=== PATIENT | male | born 1955 | race Caucasian/White ===

== ENCOUNTER 2020-07-23 10:36 | Emergency (ER) | payer OTHER ==
[2020-07-23] MEDS ORDERED: Sodium Chloride 0.9% 10 ML Syringe FLUSH PRN (11:31)
--- NOTE | 2020-07-23 12:11 | EDM.PDOC ---
ED HPI GENERAL MEDICAL PROBLEM - General Chief Complaint: Diabetic Complaint Stated Complaint: HIGH BP, HIGH BLOOD SUGAR Time Seen by Provider: 07/23/20 11:15 Source of Information: Reports: Patient History Limitations: Reports: No Limitations - History of Present Illness INITIAL COMMENTS - FREE TEXT/NARRATIVE: 65-year-old male presents to the emergency department with complaints of high blood sugar. Patient states he was seen at the [place] this morning and he had received all of his glucometer and test strips and they were going to compare his readings to the [place]'s readings. Upon initial check at the [place] the blood sugar read greater than 400 so they sent him to the emergency department for further evaluation. Patient denies any recent fever, chills, nausea, vomiting or di arrhea. Patient states he has had increased thirst and urination starting about 3 days ago. However, he states that yesterday he felt amazing and he even went for a walk which is unheard of for him. He states that years ago he took glipizide however he has not been taking this as his diabetes "resolved ". - Related Data Allergies Allergy/AdvReac Type Severity Reaction Status Date / Time Pyzpldb-Ckt-Ymu Reductase Allergy Vomiting Verified 07/23/20 10:46 Inhibitor Home Meds: Home Meds Budesonide [Budesonide EC] 1 tab PO TID 07/23/20 [History] Chlorthalidone 0.5 tab PO DAILY 07/23/20 [History] Loperamide [Imodium] 1 tab PO BID PRN 07/23/20 [History] Losartan [Cozaar] 1 tab PO DAILY 07/23/20 [History] Omeprazole 1 tab PO DAILY 07/23/20 [History] cloNIDine HCL [Clonidine HCl] 1 tab PO DAILY 07/23/20 [History] glipiZIDE [Glipizide ER] 1 tab PO BID 07/23/20 [History] hydrALAZINE HCl [Hydralazine HCl] 1 tab PO BID 07/23/20 [History] Past Medical History HEENT History: Reports: Hard of Hearing Other HEENT History: sensorineural hearing loss, biltaeral Cardiovascular History: Reports: High Cholesterol, Hypertension Gastrointestinal History: Reports: GERD Other Gastrointestinal History: colon inflammation Genitourinary History: Reports: BPH Other Genitourinary History: 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 Endocrine/Metabolic History: Reports: Diabetes, Type II, Vitamin D Deficiency - Infectious Disease History Infectious Disease History: Reports: Chicken Pox, Influenza, Measles - Past Surgical History Other HEENT Surgeries/Procedures: 3 surgeries to remove infection from face around 7 years ago GI Surgical History: Reports: Colonoscopy Social & Family History - Tobacco Use Tobacco Use Status *Q: Never Tobacco User Second Hand Smoke Exposure: No - Caffeine Use Caffeine Use: Reports: Coffee, Soda - Recreational Drug Use Recreational Drug Use: No ED ROS GENERAL - Review of Systems Review Of Systems: See Below Constitutional: Reports: No Symptoms. Denies: Fever, Chills, Decreased Appetite HEENT: Reports: No Symptoms Respiratory: Reports: No Symptoms Cardiovascular: Reports: No Symptoms Endocrine: Reports: High Glucose, Polydypsia, Polyuria GI/Abdominal: Reports: No Symptoms : Reports: Frequency. Denies: Pain, Urgency Musculoskeletal: Reports: No Symptoms Skin: Reports: No Symptoms Neurological: Reports: No Symptoms Psychiatric: Reports: No Symptoms Hematologic/Lymphatic: Reports: No Symptoms Immunologic: Reports: No Symptoms ED EXAM GENERAL NO PERIP PULSE - Physical Exam Exam: See Below Exam Limited By: No Limitations General Appearance: Alert, WD/WN, No Apparent Distress Eye Exam: Bilateral Eye: PERRL Ears: Hearing Grossly Normal Nose: Normal Inspection, Normal Mucosa Throat/Mouth: Normal Inspection, Normal Voice, No Airway Compromise Head: Atraumatic, Normocephalic Neck: Normal Inspection, Supple, Non-Tender, Full Range of Motion Respiratory/Chest: No Respiratory Distress, Lungs Clear, Normal Breath Sounds, No Accessory Muscle Use Cardiovascular: Normal Peripheral Pulses, Regular Rate, Rhythm, No Edema, No Murmur, Friction Rub GI/Abdominal: Soft, Non-Tender, No Distention (Male) Exam: Deferred Rectal (Males) Exam: Deferred Back Exam: Normal Inspection, Full Range of Motion Extremities: Normal Inspection, Normal Range of Motion, Non-Tender, No Pedal Edema, Normal Capillary Refill Neurological: Alert, Oriented, Normal Cognition Psychiatric: Normal Affect, Normal Mood Skin Exam: Warm, Dry, Intact, Normal Color, No Rash Lymphatic: No Adenopathy #1 Interpretation EKG Date: 07/23/20 Time: 10:49 Rhythm: NSR Rate (Beats/Min): 89 [place]: Normal P-Wave: Present QRS: Normal ST-T: Normal QT: Normal Comparison: NA - No Prior EKG EKG Interpretation Comments: Dr. Goodwin interpretation: Sinus rhythm with 2 PVCs, Q waves in lead III, abnormal EKG Course - Vital Signs Text/Narrative:: 65-year-old male sent from the [place] clinic due to elevated blood sugar reading. States he was seen there this morning for a checkup and to begin using a glucometer at home. When they checked his blood sugar at the [place] it was greater than 400 so they sent him here to be seen. Of note patient states that he has a history of diabetes, but he states this has resolved and he has not taken diabetic medications for the past 4 to 5 years. He states he has been feeling well other than issues with hypertension for which he sees cardiology. They have made several changes to his blood pressure medications. He states over the past few days he has had only dysuria and polyuria. He says however that yesterday he felt the best he has felt in a very long time and even went for a walk. Denies any recent fever, chills, nausea, vomiting or diarrhea. Denies any burning when voiding. I have ordered labs on this patient. Last Recorded V/S: Last Vital Signs Temp 97.3 F 07/23/20 10:41 Pulse 96 07/23/20 10:41 Resp 16 07/23/20 10:41 BP 178/106 H 07/23/20 10:41 Pulse Ox - Orders/Labs/Meds Orders: Active Orders 24 hr Category Date Time Status Accu Check [Blood Glucose Check, Bedside] [] ONETIME Care 07/23/20 15:30 Active Blood Glucose Check, Bedside [] ONETIME Care 07/23/20 13:30 Active Blood Glucose Check, Bedside [RC] ONETIME Care 07/23/20 14:30 Active Blood Glucose Check, Bedside [] Q1HR Care 07/23/20 16:30 Active Insulin Regular, Human [HumuLIN R] 100 unit Med 07/23/20 13:00 Active Sodium Chloride 0.9% [Normal Saline] 99 ml IV TITRATE Sodium Chloride 0.9% [Saline Flush] Med 07/23/20 11:31 Active 10 ml FLUSH ASDIRECTED PRN Saline Lock Insert [OM.PC] Stat Oth 07/23/20 11:31 Ordered Medication Orders Insulin Human Regular 100 unit (/ Sodium Chloride) 100 mls @ 5 mls/hr IV TITRATE YOUNG; Protocol Last Titration: 07/23/20 15:33 Dose: 5.6 unit/hr, 5.6 mls/hr Documented by: KOMAL Cosigned by: MATT Titration: 07/23/20 14:40 Dose: 3.75 unit/hr, 3.75 mls/hr Documented by: KOMAL Cosigned by: COREY Admin: 07/23/20 13:17 Dose: 5 unit/hr, 5 mls/hr Documented by: KOMAL Cosigned by: JADA Sodium Chloride (Saline Flush) 10 ml FLUSH ASDIRECTED PRN PRN Reason: Keep Vein Open Last Admin: 07/23/20 11:40 Dose: 10 ml Documented by: KOMAL Labs: Laboratory Tests 07/23/20 07/23/20 07/23/20 Range/Units 10:45 10:45 10:45 WBC 6.72 (4.23-9.07) K/mm3 RBC 5.78 (4.63-6.08) M/mm3 Hgb 16.1 (13.7-17.5) gm/dl Hct 45.2 (40.1-51.0) % MCV 78.2 L (79.0-92.2) fl MCH 27.9 (25.7-32.2) pg MCHC 35.6 H (32.2-35.5) g/dl RDW Std Deviation 37.5 (35.1-43.9) fL Plt Count 212 (163-337) K/mm3 MPV 10.8 (9.4-12.3) fl Neut % (Auto) 70.8 H (34.0-67.9) % Lymph % (Auto) 19.2 L (21.8-53.1) % [place] % (Auto) 7.6 (5.3-12.2) % Eos % (Auto) 1.2 (0.8-7.0) Baso % (Auto) 0.3 (0.1-1.2) % Neut # (Auto) 4.76 (1.78-5.38) K/mm3 Lymph # (Auto) 1.29 L (1.32-3.57) K/mm3 [place] # (Auto) 0.51 (0.30-0.82) K/mm3 Eos # (Auto) 0.08 (0.04-0.54) K/mm3 Baso # (Auto) 0.02 (0.01-0.08) K/mm3 Puncture Site ABG pH (7.35-7.45) ABG pCO2 (35.0-45.0) mmHg ABG pO2 (80.0-100.0) mmHg ABG HCO3 (22.0-26.0) meq/L ABG O2 Saturation (96.0-97.0) % ABG Base Excess (-2-2.0) Teja Test A-a Gradient mmHg O2 Delivery Device Oxygen Flow Rate FiO2 (21.00-100.00) % Sodium 130 L (136-145) mEq/L Potassium 4.2 (3.5-5.1) mEq/L Chloride 94 L (98-107) mEq/L Carbon Dioxide 22 (21-32) mEq/L Anion Gap 18.2 H (5-15) BUN 28 H (7-18) mg/dL Creatinine 1.7 H (0.7-1.3) mg/dL Est Cr Clr Drug Dosing 38.05 mL/min Estimated GFR (MDRD) 40 (>60) mL/min BUN/Creatinine Ratio 16.5 (14-18) Glucose 673 H* (80-115) mg/dL POC Glucose (80-115) mg/dL Hemoglobin A1c 10.8 H ( - 5.6) % Lactic Acid (0.4-2.0) mmol/L Calcium 9.5 (8.5-10.1) mg/dL Magnesium 2.0 (1.8-2.4) mg/dl Total Bilirubin 0.7 (0.2-1.0) mg/dL AST 54 H (15-37) U/L ALT 92 H (16-63) U/L Alkaline Phosphatase 208 H (46-116) U/L Total Protein 8.0 (6.4-8.2) g/dl Albumin 4.2 (3.4-5.0) g/dl Globulin 3.8 gm/dL Albumin/Globulin Ratio 1.1 (1-2) Urine Color (Yellow) Urine Appearance (Clear) Urine pH (5.0-8.0) Ur Specific [place] (1.005-1.030) Urine Protein (Negative) Urine Glucose (UA) (Negative) Urine Ketones (Negative) Urine Occult Blood (Negative) Urine Nitrite (Negative) Urine Bilirubin (Negative) Urine Urobilinogen (0.2-1.0) Ur Leukocyte Esterase (Negative) Ketones (0.0-0.3) mM 07/23/20 07/23/20 07/23/20 Range/Units 10:45 11:39 11:59 WBC (4.23-9.07) K/mm3 RBC (4.63-6.08) M/mm3 Hgb (13.7-17.5) gm/dl Hct (40.1-51.0) % MCV (79.0-92.2) fl MCH (25.7-32.2) pg MCHC (32.2-35.5) g/dl RDW Std Deviation (35.1-43.9) fL Plt Count (163-337) K/mm3 MPV (9.4-12.3) fl Neut % (Auto) (34.0-67.9) % Lymph % (Auto) (21.8-53.1) % [place] % (Auto) (5.3-12.2) % Eos % (Auto) (0.8-7.0) Baso % (Auto) (0.1-1.2) % Neut # (Auto) (1.78-5.38) K/mm3 Lymph # (Auto) (1.32-3.57) K/mm3 [place] # (Auto) (0.30-0.82) K/mm3 Eos # (Auto) (0.04-0.54) K/mm3 Baso # (Auto) (0.01-0.08) K/mm3 Puncture Site ABG pH (7.35-7.45) ABG pCO2 (35.0-45.0) mmHg ABG pO2 (80.0-100.0) mmHg ABG HCO3 (22.0-26.0) meq/L ABG O2 Saturation (96.0-97.0) % ABG Base Excess (-2-2.0) Teja Test A-a Gradient mmHg O2 Delivery Device Oxygen Flow Rate FiO2 (21.00-100.00) % Sodium (136-145) mEq/L Potassium (3.5-5.1) mEq/L Chloride (98-107) mEq/L Carbon Dioxide (21-32) mEq/L Anion Gap (5-15) BUN (7-18) mg/dL Creatinine (0.7-1.3) mg/dL Est Cr Clr Drug Dosing mL/min Estimated GFR (MDRD) (>60) mL/min BUN/Creatinine Ratio (14-18) Glucose (80-115) mg/dL POC Glucose (80-115) mg/dL Hemoglobin A1c ( - 5.6) % Lactic Acid 1.8 (0.4-2.0) mmol/L Calcium (8.5-10.1) mg/dL Magnesium (1.8-2.4) mg/dl Total Bilirubin (0.2-1.0) mg/dL AST (15-37) U/L ALT (16-63) U/L Alkaline Phosphatase (46-116) U/L Total Protein (6.4-8.2) g/dl Albumin (3.4-5.0) g/dl Globulin gm/dL Albumin/Globulin Ratio (1-2) Urine Color Yellow (Yellow) Urine Appearance Clear (Clear) Urine pH 6.0 (5.0-8.0) Ur Specific [place] 1.010 (1.005-1.030) Urine Protein Negative (Negative) Urine Glucose (UA) 3+ H (Negative) Urine Ketones Negative (Negative) Urine Occult Blood Negative (Negative) Urine Nitrite Negative (Negative) Urine Bilirubin Negative (Negative) Urine Urobilinogen 0.2 (0.2-1.0) Ur Leukocyte Esterase Negative (Negative) Ketones 0.06 (0.0-0.3) mM 07/23/20 07/23/20 07/23/20 Range/Units 13:20 13:37 14:39 WBC (4.23-9.07) K/mm3 RBC (4.63-6.08) M/mm3 Hgb (13.7-17.5) gm/dl Hct (40.1-51.0) % MCV (79.0-92.2) fl MCH (25.7-32.2) pg MCHC (32.2-35.5) g/dl RDW Std Deviation (35.1-43.9) fL Plt Count (163-337) K/mm3 MPV (9.4-12.3) fl Neut % (Auto) (34.0-67.9) % Lymph % (Auto) (21.8-53.1) % [place] % (Auto) (5.3-12.2) % Eos % (Auto) (0.8-7.0) Baso % (Auto) (0.1-1.2) % Neut # (Auto) (1.78-5.38) K/mm3 Lymph # (Auto) (1.32-3.57) K/mm3 [place] # (Auto) (0.30-0.82) K/mm3 Eos # (Auto) (0.04-0.54) K/mm3 Baso # (Auto) (0.01-0.08) K/mm3 Puncture Site Lt radial ABG pH 7.35 (7.35-7.45) ABG pCO2 38.5 (35.0-45.0) mmHg ABG pO2 78.0 L (80.0-100.0) mmHg ABG HCO3 20.6 L (22.0-26.0) meq/L ABG O2 Saturation 95.5 L (96.0-97.0) % ABG Base Excess -4.1 L (-2-2.0) Teja Test Positive A-a Gradient 24 mmHg O2 Delivery Device Room air Oxygen Flow Rate 0.0 FiO2 21.00 (21.00-100.00) % Sodium (136-145) mEq/L Potassium (3.5-5.1) mEq/L Chloride (98-107) mEq/L Carbon Dioxide (21-32) mEq/L Anion Gap (5-15) BUN (7-18) mg/dL Creatinine (0.7-1.3) mg/dL Est Cr Clr Drug Dosing mL/min Estimated GFR (MDRD) (>60) mL/min BUN/Creatinine Ratio (14-18) Glucose 421 H (80-115) mg/dL POC Glucose 325 H (80-115) mg/dL Hemoglobin A1c ( - 5.6) % Lactic Acid (0.4-2.0) mmol/L Calcium (8.5-10.1) mg/dL Magnesium (1.8-2.4) mg/dl Total Bilirubin (0.2-1.0) mg/dL AST (15-37) U/L ALT (16-63) U/L Alkaline Phosphatase (46-116) U/L Total Protein (6.4-8.2) g/dl Albumin (3.4-5.0) g/dl Globulin gm/dL Albumin/Globulin Ratio (1-2) Urine Color (Yellow) Urine Appearance (Clear) Urine pH (5.0-8.0) Ur Specific [place] (1.005-1.030) Urine Protein (Negative) Urine Glucose (UA) (Negative) Urine Ketones (Negative) Urine Occult Blood (Negative) Urine Nitrite (Negative) Urine Bilirubin (Negative) Urine Urobilinogen (0.2-1.0) Ur Leukocyte Esterase (Negative) Ketones (0.0-0.3) mM 07/23/20 07/23/20 07/23/20 Range/Units 15:24 16:05 16:30 WBC (4.23-9.07) K/mm3 RBC (4.63-6.08) M/mm3 Hgb (13.7-17.5) gm/dl Hct (40.1-51.0) % MCV (79.0-92.2) fl MCH (25.7-32.2) pg MCHC (32.2-35.5) g/dl RDW Std Deviation (35.1-43.9) fL Plt Count (163-337) K/mm3 MPV (9.4-12.3) fl Neut % (Auto) (34.0-67.9) % Lymph % (Auto) (21.8-53.1) % [place] % (Auto) (5.3-12.2) % Eos % (Auto) (0.8-7.0) Baso % (Auto) (0.1-1.2) % Neut # (Auto) (1.78-5.38) K/mm3 Lymph # (Auto) (1.32-3.57) K/mm3 [place] # (Auto) (0.30-0.82) K/mm3 Eos # (Auto) (0.04-0.54) K/mm3 Baso # (Auto) (0.01-0.08) K/mm3 Puncture Site ABG pH (7.35-7.45) ABG pCO2 (35.0-45.0) mmHg ABG pO2 (80.0-100.0) mmHg ABG HCO3 (22.0-26.0) meq/L ABG O2 Saturation (96.0-97.0) % ABG Base Excess (-2-2.0) Teja Test A-a Gradient mmHg O2 Delivery Device Oxygen Flow Rate FiO2 (21.00-100.00) % Sodium 141 D (136-145) mEq/L Potassium 3.8 (3.5-5.1) mEq/L Chloride 104 (98-107) mEq/L Carbon Dioxide 25 (21-32) mEq/L Anion Gap 15.8 H (5-15) BUN 24 H (7-18) mg/dL Creatinine 1.2 (0.7-1.3) mg/dL Est Cr Clr Drug Dosing 53.91 mL/min Estimated GFR (MDRD) > 60 (>60) mL/min BUN/Creatinine Ratio 20.0 H (14-18) Glucose 257 H (80-115) mg/dL POC Glucose 287 H 237 H (80-115) mg/dL Hemoglobin A1c ( - 5.6) % Lactic Acid (0.4-2.0) mmol/L Calcium 8.8 (8.5-10.1) mg/dL Magnesium (1.8-2.4) mg/dl Total Bilirubin (0.2-1.0) mg/dL AST (15-37) U/L ALT (16-63) U/L Alkaline Phosphatase (46-116) U/L Total Protein (6.4-8.2) g/dl Albumin (3.4-5.0) g/dl Globulin gm/dL Albumin/Globulin Ratio (1-2) Urine Color (Yellow) Urine Appearance (Clear) Urine pH (5.0-8.0) Ur Specific [place] (1.005-1.030) Urine Protein (Negative) Urine Glucose (UA) (Negative) Urine Ketones (Negative) Urine Occult Blood (Negative) Urine Nitrite (Negative) Urine Bilirubin (Negative) Urine Urobilinogen (0.2-1.0) Ur Leukocyte Esterase (Negative) Ketones (0.0-0.3) mM Meds: Medications Generic Name Dose Route Start Last Admin Trade Name Freq PRN Reason Stop Dose Admin Insulin Human Regular 100 unit 100 mls @ 5 mls/hr 07/23/20 13:00 07/23/20 15:33 / Sodium Chloride IV 5.6 unit/hr TITRATE YOUNG 5.6 mls/hr Titration Protocol 5 UNIT/HR Sodium Chloride 10 ml 07/23/20 11:31 07/23/20 11:40 Saline Flush FLUSH 10 ml ASDIRECTED PRN Administration Keep Vein Open Discontinued Medications Generic Name Dose Route Start Last Admin Trade Name Mando PRN Reason Stop Dose Admin Sodium Chloride 1,000 mls @ 999 mls/hr 07/23/20 12:13 07/23/20 12:25 Normal Saline IV 07/23/20 13:13 999 mls/hr ONETIME ONE Administration Sodium Chloride 1,000 mls @ 999 mls/hr 07/23/20 13:30 07/23/20 13:40 Normal Saline IV 07/23/20 14:30 999 mls/hr ONETIME ONE Administration Sodium Chloride 1,000 mls @ 999 mls/hr 07/23/20 15:54 07/23/20 16:00 Normal Saline IV 07/23/20 16:54 999 mls/hr ONETIME ONE Administration Insulin Human Regular 5 unit 07/23/20 12:13 07/23/20 12:26 Humulin R SUBCUT 07/23/20 12:14 5 unit ONETIME ONE Administration - Re-Assessments/Exams Free Text/Narrative Re-Assessment/Exam: 07/23/20 12:15 Nursing staff reports that the patients blood sugar is 673. I have ordered 1 liter of NS wide open and 5 units of regular insulin. Consulted with Dr. Goodwin and he agrees with this. Still awaiting chemistries on this patient. 07/23/20 14:49 Labs reveal a WBC of 6.72, hemoglobin 16.1, hematocrit 45.2, chemistry reveals a sodium of 130, potassium 4.2, chloride of 94, carbon dioxide 22, anion gap 18.2, BUN 28, creatinine 1.7, GFR 40, glucose 673, hemoglobin A1c 10.8, lactic acid 1.8, magnesium 2.0, AST 54, ALT 92, alk phos 208, ketones 0.06 ABGs show a pH of 7.35, PCO2 38.5, PO2 78.0, HCO3 20.6, O2 sat 95.5 with a base excess of -4.1 on room air Urinalysis reveals 3+ urine glucose Started on insulin drip at 5 units an hour. Will repeat his blood sugars hourly 07/23/20 14:52 Repeat blood sugar at 1330 was 421 Liter of normal saline was started on this patient at wide open. Repeat blood sugar at 1430 was 325 Nursing staff decreased insulin drip to 3.7 units/h per protocol Patient is pretty adamant about not wanting to be hospitalized and wants to be able to go home as soon as possible I did visit with him regarding the fact that we cannot bring his blood sugars down too quickly. 07/23/20 16:55 Labs reveal a sodium of 141, potassium 3.8, chloride 104, carbon dioxide 25, anion gap 15.8, BUN 24, creatinine 1.2, glucose 237, calcium 8.[address] Goodwin regarding this case and he agrees that the patient would be safe to discharge to home. Also consulted with Dr. Coughlin regarding discharge medications to control blood sugars. He recommends that the patient be discharged to home to resume his dose of Glipizide as the patient was only represcribed this yesterday and has not taken them. Pt is to take his dose for the day with supper once he gets home. Recommend that he check his blood sugars four times daily AC&HS. Watch his carbohydrate intake and get some exercise. Patient will be notified that should his blood sugar be greater than 400 he will need to return to the emergency department. Patient also states that he does have the nurse phone number to the [place] and he can also call them with any symptoms or concerns. Departure - Departure Time of Disposition: 16:59 Disposition: Home, Self-Care 01 Condition: Fair Clinical Impression: Hyperglycemia - Discharge Information Instructions: Hyperglycemic Hyperosmolar State Referrals: Krysten Bergman MD [Primary Care Provider] - Forms: ED Department Discharge Additional Instructions: You were seen in the emergency department today with a blood sugar greater than 600. Lab work was completed and you received IV fluids and an insulin drip. We did get your blood sugar down to 237, your dehydration is much improved, and your potassium levels are stable. Your A1c today was 10.4. You will need to resume your glipizide as prescribed by the [place]. This medication needs to be taken with food. Recommend that you check your blood sugars 4 times daily before meals and at bedtime. Keep a log of these blood sugars. If you have questions regarding your blood sugar values you can call the [place] nurse hotline as you stated you do have this phone number. If your blood sugar goes higher than 400 you will need to return to the emergency department. You need to watch your carbohydrate intake as this raises your blood sugars. Keep in mind that even fruits have carbohydrates. Also recommend that you increase your activity and exercise. You will need to call the [place] first thing Sunday to make a follow-up appointment regarding your blood sugars. Sepsis Event Note (ED) - Evaluation Sepsis Screening Result: No Definite Risk - Focused Exam Vital Signs: Vital Signs Temp Pulse Resp BP 07/23/20 10:41 97.3 F 96 16 178/106 H - My Orders Last 24 Hours: My Active Orders 07/23/20 11:31 Sodium Chloride 0.9% [Saline Flush] 10 ml FLUSH ASDIRECTED PRN Saline Lock Insert [OM.PC] Stat 07/23/20 13:00 Insulin Regular, Human [HumuLIN R] 100 unit Sodium Chloride 0.9% [Normal Saline] 99 ml IV TITRATE 07/23/20 13:30 Blood Glucose Check, Bedside [RC] ONETIME 07/23/20 14:30 Blood Glucose Check, Bedside [RC] ONETIME 07/23/20 15:30 Accu Check [Blood Glucose Check, Bedside] [RC] ONETIME 07/23/20 16:30 Blood Glucose Check, Bedside [RC] Q1HR - Assessment/Plan Last 24 Hours: My Active Orders 07/23/20 11:31 Sodium Chloride 0.9% [Saline Flush] 10 ml FLUSH ASDIRECTED PRN Saline Lock Insert [OM.PC] Stat 07/23/20 13:00 Insulin Regular, Human [HumuLIN R] 100 unit Sodium Chloride 0.9% [Normal Saline] 99 ml IV TITRATE 07/23/20 13:30 Blood Glucose Check, Bedside [RC] ONETIME 07/23/20 14:30 Blood Glucose Check, Bedside [RC] ONETIME 07/23/20 15:30 Accu Check [Blood Glucose Check, Bedside] [RC] ONETIME 07/23/20 16:30 Blood Glucose Check, Bedside [RC] Q1HR
[2020-07-23] MEDS ORDERED: Insulin Regular, Human 100 Units/ML 3 ML Vial SUBCUT ONE (12:13)
[2020-07-23] MEDS ORDERED: Sodium Chloride 0.9% 1,000 ML IV ONE ×3 (12:13→15:54)
[2020-07-23 12:30] LABS: HEMOGLOBIN A1C 10.8 %
== END 2020-07-23 17:17 | disposition home or self-care (01) ==
LOC: JD.ED 10:36
DX: E11.65 Type 2 diabetes mellitus with hyperglycemia (principal); I10 Essential (primary) hypertension; K21.9 Gastro-esophageal reflux disease without esophagitis; Z79.84 Long term (current) use of oral hypoglycemic drugs; Z79.899 Other long term (current) drug therapy; Z88.8 Allergy status to other drugs, medicaments and biological substances
CPT/HCPCS: 36415; 36600; 80048; 80053; 81003; 82009; 82803; 82947; 82962; 83036; 83605; 83735; 85025; 99285; J1815; J7030; 93010; 99284

== ENCOUNTER 2023-12-25 12:02 | Emergency (ER) | payer OTHER ==
[2023-12-25 13:10] LABS: BASOPHILS PERCENT AUTO 0.5 % (0.0-1.0); EOSINOPHILS ABSOLUTE AUTO 0.1 K/mm3 (0.0-0.4); HEMATOCRIT 41.3 % (42.0-52.0); HEMOGLOBIN 14.2 gm/dl (14.0-18.0); IMMATURE GRAN ABSOLUTE AUTO 0.04 K/mm3 (0.00-0.05); IMMATURE GRAN PERCENT AUTO 0.7 % (0.0-0.4); LYMPHOCYTES ABSOLUTE AUTO 1.7 K/mm3 (1.0-4.8); LYMPHOCYTES PERCENT AUTO 30.6 % (24.0-44.0); MEAN CORPUSCULAR HEMOGLOBIN 28.5 pg (28.0-32.0); MEAN CORPUSCULAR HGB CONC 34.4 g/dl (32.0-36.0); MEAN CORPUSCULAR VOLUME 82.8 fl (83.0-99.0); MEAN PLATELET VOLUME 10.6 fl (9.4-12.4); MONOCYTES ABSOLUTE AUTO 0.5 K/mm3 (0.0-0.8); MONOCYTES PERCENT AUTO 9.2 % (0.0-8.0); NEUTROPHILS ABSOLUTE AUTO 3.2 K/mm3 (1.8-7.7); PLATELET COUNT,PLT 184 K/mm3 (150-400); RED BLOOD CELL COUNT 4.99 M/mm3 (4.52-5.90); WHITE BLOOD CELL COUNT,WBC 5.53 K/mm3 (3.9-11.3)
[2023-12-25 13:38] LABS: A/G RATIO 1.2 (1-2); ALBUMIN 3.9 g/dl (3.4-5.0); BILIRUBIN TOTAL 0.6 mg/dL (0.2-1.0); BUN/CREATININE RATIO 22.3 (14-18); CALCIUM 9.2 mg/dL (8.5-10.1); CREATININE 1.3 mg/dL (0.7-1.3); EST CRCL DRUG DOSING (CG) 47.71 mL/min; MAGNESIUM 1.7 mg/dL (1.8-2.4); PROTEIN TOTAL,TP 7.1 g/dl (6.4-8.2)
== END 2023-12-25 14:58 | disposition home or self-care (01) ==
LOC: JD.ED 12:02
DX: I49.3 Ventricular premature depolarization (principal); I10 Essential (primary) hypertension; E11.9 Type 2 diabetes mellitus without complications; Z88.8 Allergy status to other drugs, medicaments and biological substances; Z79.899 Other long term (current) drug therapy
CPT/HCPCS: 36415; 80053; 82272; 83735; 85025; 93005; 93010; 93246; 99282; 99284